=== PATIENT | male | born 1980 | race Caucasian/White ===

== ENCOUNTER 2020-01-31 05:31 | Emergency (ER) | payer OTHER ==
[~2020-01-31] VITALS: Ht 180.3 cm; Wt 86.2 kg
[2020-01-31 05:53] VITALS: BP 134/84; Ht 180.3 cm; Wt 86.2 kg
== END 2020-01-31 07:25 | disposition home or self-care (01) ==
LOC: ED 05:31
DX: R19.7 Diarrhea, unspecified (principal)

== ENCOUNTER 2020-03-26 17:04 | Emergency (ER) | payer OTHER ==
[~2020-03-26] VITALS: Ht 180.3 cm; Wt 90.7 kg
[2020-03-26 17:09] VITALS: Ht 180.3 cm; Wt 90.7 kg
[2020-03-26 18:30] LABS: BASOPHIL % 0.5 % (0-2); PLATELET COUNT 386 x10^3mcL (130-400); RED CELL DISTRIBUTION WIDTH 13.3 % (11.5-14.5)
[2020-03-26 18:48] LABS: CHLORIDE SERUM 102 mmol/L (98-107); CREATININE SERUM 1.7 mg/dL (0.7-1.3); GFR1 48 mL/min; GLUCOSE SERUM 129 mg/dL (74-106); POTASSIUM SERUM 3.7 mmol/L (3.5-5.1); SODIUM SERUM 137 mmol/L (136-145)
[2020-03-26 18:52] LABS: ALKALINE PHOSPHATASE 92 U/L (46-116); ALT/SGPT 17 U/L (16-63); AST/SGOT 13 U/L (15-37); BILIRUBIN TOTAL 0.5 mg/dL (0.20-1.00); TOTAL PROTEIN, SERUM 6.5 g/dL (6.4-8.2)
[2020-03-26 18:56] LABS: ALBUMIN 3.2 g/dL (3.4-5.0)
[2020-03-26 21:25] VITALS: BP 107/66
== END 2020-03-26 22:14 | disposition left against medical advice (07) ==
LOC: ED 17:04
PROVIDERS: Emergency Medicine
DX: R45.851 Suicidal ideations (principal); R31.9 Hematuria, unspecified; Z59.0 Homelessness; Z20.828 Contact with and (suspected) exposure to other viral communicable diseases
CPT/HCPCS: G0480; Q0092; U0003

== ENCOUNTER 2020-03-27 02:12 | Inpatient (IN) | payer OTHER ==
[~2020-03-27] VITALS: Ht 180.3 cm; Wt 70.4 kg
[2020-03-27 02:17] VITALS: Ht 180.3 cm; Wt 70.4 kg
[2020-03-27 03:26] LABS: microscopic required? NO
[2020-03-27 04:12] LABS: UA SPECIFIC GRAVITY 1.025 (1.005-1.035); urine erythrocyte NEGATIVE (NEGATIVE)
[2020-03-27 04:21] LABS: AMPHETAMINE QUAL UR POSITIVE (See below)
[2020-03-28 20:05] VITALS: BP 135/72
[2020-03-29 06:14] VITALS: BP 115/71
[2020-03-29 08:13] VITALS: BP 108/78
[2020-03-29 11:36] VITALS: BP 108/78
[2020-03-29 12:06] VITALS: BP 128/77
[2020-03-29 16:16] VITALS: BP 116/72
[2020-03-29 20:00] VITALS: BP 124/77
[2020-03-30 06:05] VITALS: BP 108/64
[2020-03-30 12:53] VITALS: BP 114/71
[2020-03-30 18:30] VITALS: BP 127/78
[2020-03-30 20:37] VITALS: BP 106/68
[2020-03-31 06:02] VITALS: BP 104/60
[2020-03-31 21:40] VITALS: BP 109/66
[2020-04-01 05:40] VITALS: BP 112/68
[2020-04-01 07:00] VITALS: BP 112/66
[2020-04-01 12:18] VITALS: BP 124/84
[2020-04-01 15:47] VITALS: BP 109/62
[2020-04-01 20:05] VITALS: BP 110/67
[2020-04-02 05:40] VITALS: BP 98/56
[2020-04-02 08:32] VITALS: BP 137/94
[2020-04-02 12:28] VITALS: BP 126/76
[2020-04-02 17:14] VITALS: BP 115/69
[2020-04-03 05:42] VITALS: BP 110/75
[2020-04-03 08:25] VITALS: BP 129/74
[2020-04-03 12:03] VITALS: BP 125/80
[2020-04-03 14:20] VITALS: BP 125/80
== END 2020-04-03 14:50 | disposition short-term general hospital (02) | DRG 757 ==
LOC: ED 02:12 → MU 03-28 18:37
PROVIDERS: Emergency Medicine; ADMIT Hospitalist; ATTEND Hospitalist
DX: F78 Other intellectual disabilities (principal); F12.90 Cannabis use, unspecified, uncomplicated; R53.1 Weakness; F17.210 Nicotine dependence, cigarettes, uncomplicated; F31.9 Bipolar disorder, unspecified; M79.10 Myalgia, unspecified site; F43.20 Adjustment disorder, unspecified; Z20.828 Contact with and (suspected) exposure to other viral communicable diseases; Z59.0 Homelessness; Z89.511 Acquired absence of right leg below knee; Z81.0 Family history of intellectual disabilities
CPT/HCPCS: G0378; U0003